=== PATIENT | female | born 1980 | race Caucasian/White ===

== ENCOUNTER 2017-03-02 11:44 | Emergency (ER) | payer MEDICAID ==
[~2017-03-02] VITALS: Wt 60.9 kg
[2017-03-02] MEDS ORDERED: LIDOCAINE 1% (MDV) 20 ML INJ SC ONE (13:30)
[2017-03-02] MEDS ORDERED: ACETAMINOPHEN 325 MG TAB PO ONE (13:30)
[2017-03-02] MEDS ORDERED: SULF1TAB31 PO (13:49)
[2017-03-02] MEDS ORDERED: ACET1TAB40 PO (13:49)
--- NOTE | 2017-03-02 13:53 | ERD ---
ER Documentation Chief Complaint Chief Complaint ABCESS ON GENITAL AREA HPI 1-year-old female complains of some redness and swelling vaginal area worsening over the last week. Patient is a history of Bartholin's cyst I&D 3 years ago. Denies any fevers, vomiting, shortness breath or chest pain. ROS All systems reviewed and are negative except as per history of present illness. Medications Home Meds Active Scripts Acetaminophen with Codeine (Acetaminophen-Cod #3 Tablet) 1 Each Tablet, 1 TAB PO Q6H Y for PAIN, #10 TAB Prov:ADÁN MERLOS MD 03/02/17 Sulfamethoxazole/Trimethoprim* (Bactrim Ds* Tablet) 1 Each Tablet, 1 TAB PO BID , #14 TAB Prov:ADÁN MERLOS MD 03/02/17 Allergies Allergies: Coded Allergies: No Known Drug Allergy (Verified Allergy, Unknown, 03/02/17) PMhx/Soc Medical and Surgical Hx: pt denies Medical Hx History of Surgery: Yes (vaginal mass) Anesthesia Reaction: No Hx Neurological Disorder: No Hx Respiratory Disorders: No Hx Cardiac Disorders: No Hx Psychiatric Problems: No Hx Miscellaneous Medical Probl: No Hx Alcohol Use: No Hx Substance Use: No Hx Tobacco Use: No Physical Exam Vitals Vital Signs Date Time Temp Pulse Resp B/P Pulse Ox O2 Delivery O2 Flow Rate FiO2 03/02/17 11:48 98.5 71 18 117/60 100 Physical Exam Const: [] Alert, not ill-appearing. Head: Atraumatic Eyes: Normal Conjunctiva ENT: Normal External Ears, Nose and Mouth. Neck: Full range of motion..~ No meningismus. Resp: Clear to auscultation bilaterally Cardio: Regular rate and rhythm, no murmurs Abd: Soft, non tender, non distended. Normal bowel sounds Skin: No petechiae or rashes Back: No midline or flank tenderness Ext: No cyanosis, or edema Neur: Awake and alert Psych: Normal Mood and Affect General exam with assistance of a jigsawyer shows some swelling and irritation and fluctuance in the right introitus. This been given induration and no active discharge. Results 24 hrs Current Medications Medications (Trade) Dose Ordered Sig/Makenna Route PRN Reason Start Time Stop Time Status Last Admin Dose Admin Acetaminophen (Tylenol Tab) 650 mg ONCE ONCE PO 03/02/17 13:30 03/02/17 13:31 DC 11/24/17 13:14 Lidocaine (Xylocaine 1% (Mdv) 20 ml) 20 ml ONCE ONCE SC 03/02/17 13:30 03/02/17 13:31 DC Procedures/MDM Signs and symptoms of an infected right Bartholin's gland cyst without evidence of sepsis, necrotizing fasciitis. Note-patient was given Tylenol for pain. 5 cc of lidocaine was used for local rotation. 30 cc of purulent material was aspirated using a 18-gauge needle. Incision was made with a #11 scalpel a small ellipse was made. Additional purulent material was expressed. Wound was packed with approximately 10 cm of quarter-inch gauze and dressing was applied. Patient tolerated procedure well. Discharged home with instructions for 2-3 day wound check for gauze removal. Patient was otherwise advised to return for fevers, vomiting, shortness breath or chest pain. The patient was stable with no new complaints during the ER course. Clinically, there is no current evidence to suggest meningitis, sepsis, acute abdomen, pneumonia, acute coronary syndrome, pulmonary embolism, or any other emergent condition appearing to require further evaluation or hospitalization. The patient should certainly return for any new or worsening symptoms per the aftercare instructions. They should otherwise follow-up with her primary care doctor for reevaluation this week. Departure Diagnosis: Primary Impression: Bartholin cyst Condition: Stable Patient Instructions: Bartholin's Cyst (I And D) Additional Instructions: cheque spenserro vez en 2-3 wilkins para saca gauze, mas pronto para mas colunga, echada, fiebre. ADÁN MERLOS MD Mar 02, 2017 13:53
== END 2017-03-02 16:05 | disposition home or self-care (01) ==
LOC: FTE 11:44
DX: N75.0 Cyst of Bartholin's gland (principal)
CPT/HCPCS: 56420; Z7610

== ENCOUNTER 2017-08-12 12:59 | Emergency (ER) | END 2017-08-12 15:50 | disposition home or self-care (01) ==

== ENCOUNTER 2017-10-14 13:42 | Emergency (ER) | END 2017-10-14 15:09 | disposition home or self-care (01) ==

== ENCOUNTER 2018-08-28 08:14 | Emergency (ER) | payer MEDICAID ==
[~2018-08-28] VITALS: Ht 149.9 cm; Wt 66.9 kg
[~2018-08-28 08:14] MED LIST: ACET1TAB40 PO; AMOX500C2 PO; CEPH-443 PO; HYDR-4011 PO; IBUP-1542 PO; SULF1TAB31 PO
[2018-08-28 08:19] VITALS: Ht 149.9 cm; Wt 66.9 kg
[2018-08-28] MEDS ORDERED: CEPH-443 PO (08:57)
[2018-08-28] MEDS ORDERED: SULF1TAB31 PO (08:57)
[2018-08-28] MEDS ORDERED: LIDOCAINE 1% (MPF) 5 ML VIAL INJ ONE (09:00)
--- NOTE | 2018-08-28 10:12 | ERD ---
ER Documentation Chief Complaint Chief Complaint abscess on labia x 5 months worsening x 2 weeks HPI 38-year-old female presenting with a large abscess to her right labia. Patient states is been there for the last 5 months but is intensified and worsened over the last 2 weeks. She states she is had to have incision and drainages in the past. Denies any fevers. Denies other medical problems. NKDA. Surgical history denies. Social history denies ROS All systems reviewed and are negative except as per history of present illness. Medications Home Meds Active Scripts Sulfamethoxazole/Trimethoprim* (Bactrim Ds* Tablet) 1 Each Tablet, 1 TAB PO BID, #14 TAB Prov:TONY SALAS-C 08/28/18 Cephalexin* (Keflex*) 500 Mg Capsule, 500 MG PO QID for 7 Days, CAP Prov:TONY SALAS-C 08/28/18 Cephalexin* (Keflex*) 500 Mg Capsule, 500 MG PO TID for 7 Days, CAP Prov:ENMA VELAZQUEZC 10/14/17 Sulfamethoxazole/Trimethoprim* (Bactrim Ds* Tablet) 1 Each Tablet, 1 TAB PO BID, #14 TAB Prov:ENMA VELAZQUEZC 10/14/17 Ibuprofen* (Motrin*) 600 Mg Tab, 600 MG PO Q6, #30 TAB Prov:ENMA VELAZQUEZ-C 10/14/17 Hydrocodone/Acetaminophen ([place] 5-325 Tablet) 1 Each Tablet, 1 TAB PO Q6H PRN for PAIN, #20 TAB Prov:JANETH HORTON MD 08/12/17 Amoxicillin* (Amoxicillin*) 500 Mg Cap, 500 MG PO TID for 7 Days, CAP Prov:JANETH HORTON MD 08/12/17 Acetaminophen with Codeine (Acetaminophen-Cod #3 Tablet) 1 Each Tablet, 1 TAB PO Q6H PRN for PAIN, #10 TAB Prov:ADÁN MERLOS MD 03/02/17 Sulfamethoxazole/Trimethoprim* (Bactrim Ds* Tablet) 1 Each Tablet, 1 TAB PO BID, #14 TAB Prov:ADÁN MERLOS MD 03/02/17 Allergies Allergies: Coded Allergies: No Known Drug Allergy (Verified Allergy, Unknown, 08/12/17) PMhx/Soc History of Surgery: Yes (vaginal mass) Anesthesia Reaction: No Hx Neurological Disorder: No Hx Respiratory Disorders: No Hx Cardiac Disorders: No Hx Psychiatric Problems: No Hx Miscellaneous Medical Probl: No Hx Alcohol Use: No Hx Substance Use: No Hx Tobacco Use: No FmHx Family History: No diabetes, No coronary disease, No other Physical Exam Vitals Vital Signs Date Temp Pulse Resp B/P (MAP) Pulse Ox O2 O2 Flow FiO2 Time Delivery Rate 08/28/18 98.1 59 18 117/56 99 08:19 (76) Physical Exam GENERAL: The patient is well-appearing, well-nourished, in no acute distress CHEST: Clear to auscultation bilaterally. There are no rales, wheezes or rhonchi. HEART: Regular rate and rhythm. No murmurs, clicks, rubs or gallops. ABDOMEN:Soft, nontender and nondistended. Good bowel sounds. No rebound or guarding. No gross peritonitis. No gross organomegaly or masses. SKIN: Fluctuant abscess noted to the right labia. Mild tenderness to palpation. Results 24 hrs Current Medications Medications Dose Sig/Makenna Start Time Status Last (Trade) Ordered Route PRN Stop Time Admin Dose Reason Admin Lidocaine 5 ml ONCE ONCE 08/28/18 DC (Xylocaine INJ 09:00 1% (Mpf)) 08/28/18 09:01 Procedures/MDM Abscess Incision and Drainage with irrigation by me: Location: Right Labia Anesthesia: Local 1% Lidocaine Technique: Irrigated. Disrupted loculations w/ instrumentation Packing: None Complications: Neurovascularly intact post procedure 48 hour wound check. Scar minimization instructions given. Patient's skin symptoms have stabilized while they have been evaluated in the department and are appropriate for outpatient care and work up. Exam and w/u not consistent w/ sepsis, deep space infection, or foreign body. MDM: 38 yr old female complaining of Bartholin cyst. I&D was performed in ED and copious amounts of drainage was removed. I have low suspicion for deep tracking abscess. Patient is discharged with strict ER precautions and told to follow-up with primary care within 1 to 2 days for close evaluation. Patient is discharged with strict ER precautions. All questions answered at discharge Departure Diagnosis: Primary Impression: Abscess Condition: Stable Patient Instructions: Bartholin's Cyst (I And D) Referrals: [facility] YOU HAVE RECEIVED A MEDICAL SCREENING EXAM AND THE RESULTS INDICATE THAT YOU DO NOT HAVE A CONDITION THAT REQUIRES URGENT TREATMENT IN THE EMERGENCY DEPARTMENT. FURTHER EVALUATION AND TREATMENT OF YOUR CONDITION CAN WAIT UNTIL YOU ARE SEEN IN YOUR DOCTORS OFFICE WITHIN THE NEXT 1-2 DAYS. IT IS YOUR RESPONSIBILITY TO MAKE AN APPOINTMENT FOR FOLOW-UP CARE. IF YOU HAVE A PRIMARY DOCTOR --you should call your primary doctor and schedule an appointment IF YOU DO NOT HAVE A PRIMARY DOCTOR YOU CAN CALL OUR PHYSICIAN REFERRAL HOTLINE AT IF YOU CAN NOT AFFORD TO SEE A PHYSICIAN YOU CAN CHOSE FROM THE FOLLOWING [facility] [address] [facility] [address] [facility] [facility] [address] [facility] [facility] [facility] [address] [facility] [address] [facility]. [facility]. [address] Additional Instructions: FOLLOW UP WITH YOUR PRIMARY CARE PHYSICIAN TOMORROW.Return to this facility if you are not improving as expected. TONY SALAS PA-C August 28, 2018 10:12
== END 2018-08-28 09:32 | disposition home or self-care (01) ==
LOC: FTE 08:14
DX: N76.4 Abscess of vulva (principal)
CPT/HCPCS: 56405; Z7502; Z7610

== ENCOUNTER 2018-10-29 06:35 | Emergency (ER) | payer MEDICAID ==
[~2018-10-29] VITALS: Ht 157.5 cm; Wt 78.0 kg
[2018-10-29 06:37] VITALS: BP 107/56; PULSE 67; RESP 18; Ht 157.5 cm; Wt 78.0 kg
[2018-10-29] MEDS ORDERED: LIDOCAINE 1% (MPF) 5 ML VIAL INJ ONE (07:30)
[2018-10-29] MEDS ORDERED: SULF1TAB31 PO (07:39)
[2018-10-29] MEDS ORDERED: CEPH-443 PO (07:39)
--- NOTE | 2018-10-29 10:53 | ERD ---
ER Documentation Chief Complaint Chief Complaint possible bartolino's cyst HPI 38-year-old female presenting with a Bartholin cyst to the right labia that is been there for the last 2 weeks. Patient states she has had this before. Denies any fevers. Has not taken any medications on the area but it has grown and become very uncomfortable. Denies medical problems. NKDA. Surgical history denies. Social history denies ROS All systems reviewed and are negative except as per history of present illness. Medications Home Meds Active Scripts Sulfamethoxazole/Trimethoprim* (Bactrim Ds* Tablet) 1 Each Tablet, 1 TAB PO BID, #14 TAB Prov:TONY SALASC 10/29/18 Cephalexin* (Keflex*) 500 Mg Capsule, 500 MG PO QID for 7 Days, CAP Prov:TONY SALAS-C 10/29/18 Sulfamethoxazole/Trimethoprim* (Bactrim Ds* Tablet) 1 Each Tablet, 1 TAB PO BID, #14 TAB Prov:TONY SALASC 08/28/18 Cephalexin* (Keflex*) 500 Mg Capsule, 500 MG PO QID for 7 Days, CAP Prov:TONY SALASC 08/28/18 Cephalexin* (Keflex*) 500 Mg Capsule, 500 MG PO TID for 7 Days, CAP Prov:ENMA VELAZQUEZC 10/14/17 Sulfamethoxazole/Trimethoprim* (Bactrim Ds* Tablet) 1 Each Tablet, 1 TAB PO BID, #14 TAB Prov:ENMA VELAZQUEZ PA-C 10/14/17 Ibuprofen* (Motrin*) 600 Mg Tab, 600 MG PO Q6, #30 TAB Prov:ENMA VELAZQUEZC 10/14/17 Hydrocodone/Acetaminophen ([place] 5-325 Tablet) 1 Each Tablet, 1 TAB PO Q6H PRN for PAIN, #20 TAB Prov:JANETH HORTON MD 08/12/17 Amoxicillin* (Amoxicillin*) 500 Mg Cap, 500 MG PO TID for 7 Days, CAP Prov:JANETH HORTON MD 18 Acetaminophen with Codeine (Acetaminophen-Cod #3 Tablet) 1 Each Tablet, 1 TAB PO Q6H PRN for PAIN, #10 TAB Prov:ADÁN MERLOS MD 03/02/17 Sulfamethoxazole/Trimethoprim* (Bactrim Ds* Tablet) 1 Each Tablet, 1 TAB PO BID, #14 TAB Prov:ADÁN MERLOS MD 03/02/17 Allergies Allergies: Coded Allergies: No Known Drug Allergy (Verified Allergy, Unknown, 08/12/17) PMhx/Soc History of Surgery: Yes (vaginal mass) Anesthesia Reaction: No Hx Neurological Disorder: No Hx Respiratory Disorders: No Hx Cardiac Disorders: No Hx Psychiatric Problems: No Hx Miscellaneous Medical Probl: No Hx Alcohol Use: No Hx Substance Use: No Hx Tobacco Use: No Smoking Status: Never smoker FmHx Family History: No diabetes, No coronary disease, No other Physical Exam Vitals Vital Signs Date Temp Pulse Resp B/P (MAP) Pulse Ox O2 O2 Flow FiO2 Time Delivery Rate 10/29/18 98.1 67 18 107/56 99 06:37 (73) Physical Exam GENERAL: The patient is well-appearing, well-nourished, in no acute distress CHEST: Clear to auscultation bilaterally. There are no rales, wheezes or rhonchi. HEART: Regular rate and rhythm. No murmurs, clicks, rubs or gallops. ABDOMEN:Soft, nontender and nondistended. Good bowel sounds. No rebound or guarding. No gross peritonitis. No gross organomegaly or masses. b SKIN: There is no apparent rash or petechiae. The skin is warm and dry. : Large fluctuant mass adjacent to the right labia. Tender to palpation with mild erythema. Results 24 hrs Current Medications Medications Dose Sig/Makenna Start Time Status Last (Trade) Ordered Route PRN Stop Time Admin Dose Reason Admin Lidocaine 5 ml ONCE ONCE 10/29/18 DC (Xylocaine INJ 07:30 1% (Mpf)) 10/29/18 07:31 Procedures/MDM Abscess Incision and Drainage with irrigation by me: Location: Right labia Anesthesia: Local 1% Lidocaine Technique: Irrigated. Disrupted loculations w/ instrumentation Packing: None Complications: Neurovascularly intact post procedure 48 hour wound check. Scar minimization instructions given. MDM: 38-year-old female presenting with Bartholin cyst that was drained in the emergency room. I have low suspicion for deep tracking abscess or fistula. Patient will be discharged with supportive medications and recommended to clean with soap and water at home. Patient was told to apply warm compresses. Patient is told if symptoms change or worsen to return immediately to the ER. All questions answered at discharge Departure Diagnosis: Primary Impression: Bartholin cyst Condition: Stable Patient Instructions: Bartholin's Cyst (I And D) Referrals: [facility] YOU HAVE RECEIVED A MEDICAL SCREENING EXAM AND THE RESULTS INDICATE THAT YOU DO NOT HAVE A CONDITION THAT REQUIRES URGENT TREATMENT IN THE EMERGENCY DEPARTMENT. FURTHER EVALUATION AND TREATMENT OF YOUR CONDITION CAN WAIT UNTIL YOU ARE SEEN IN YOUR DOCTORS OFFICE WITHIN THE NEXT 1-2 DAYS. IT IS YOUR RESPONSIBILITY TO MAKE AN APPOINTMENT FOR FOLOW-UP CARE. IF YOU HAVE A PRIMARY DOCTOR --you should call your primary doctor and schedule an appointment IF YOU DO NOT HAVE A PRIMARY DOCTOR YOU CAN CALL OUR PHYSICIAN REFERRAL HOTLINE AT IF YOU CAN NOT AFFORD TO SEE A PHYSICIAN YOU CAN CHOSE FROM THE FOLLOWING [facility] [address] [facility] [address] [facility] [address] [facility] [address] [facility] [address] [facility] [facility]. [address] Additional Instructions: FOLLOW UP WITH YOUR PRIMARY CARE PHYSICIAN TOMORROW.Return to this facility if you are not improving as expected. TONY SALAS PA-C Oct 29, 2018 10:53
== END 2018-10-29 08:09 | disposition home or self-care (01) ==
LOC: FTE 06:35
DX: N75.0 Cyst of Bartholin's gland (principal)
CPT/HCPCS: 56420; Z7502; Z7610

== ENCOUNTER 2018-11-26 11:00 | Emergency (ER) | payer MEDICAID ==
[~2018-11-26] VITALS: Ht 149.9 cm; Wt 65.9 kg
[~2018-11-26 11:00] MED LIST changes: +NAPR-985 PO
[2018-11-26 11:05] VITALS: Ht 149.9 cm; Wt 65.9 kg
[2018-11-26] MEDS ORDERED: LIDOCAINE 1% (MPF) 5 ML VIAL INJ ONE (12:00)
== END 2018-11-26 12:29 | disposition home or self-care (01) ==
LOC: FTE 11:00
DX: N76.4 Abscess of vulva (principal)
CPT/HCPCS: 56405; Z7502; Z7610